=== PATIENT | female | born 1990 | race Caucasian/White ===

== ENCOUNTER 2020-06-13 12:51 | Emergency (ER) | payer MEDICAID, SELFPAY ==
[~2020-06-13] VITALS: Ht 152.4 cm; Wt 77.1 kg
[2020-06-13 12:58] VITALS: BP 149/91
--- NOTE | 2020-06-13 13:10 | NUR ---
29/F c/o nasal congestion x 4 days, subj fever since last night. Also states anxiety x 2 days. Denies cough, SOB.
--- NOTE | 2020-06-13 13:35 | NUR ---
covid swab collected and sent to lab
[2020-06-13 13:40] VITALS: BP 149/91
--- NOTE | 2020-06-13 13:40 | NUR ---
Patient discharged with v/s stable. Written and verbal after care instructions given and explained. Patient alert, oriented and verbalized understanding of instructions. Ambulatory with steady gait. All questions addressed prior to discharge. ID band removed. Patient advised to follow up with PMD. Rx of vistaril, zyrtec D, flonase given. Patient educated on indication of medication including possible reaction and side effects. Opportunity to ask questions provided and answered.
--- NOTE | 2020-06-18 10:33 | NUR ---
Covid-19 result shows not detected. Copy of results given to Mary at infection control
== END 2020-06-13 13:40 | disposition home or self-care (01) ==
LOC: MED 12:51
DX: R09.81 Nasal congestion (principal); J30.9 Allergic rhinitis, unspecified; I10 Essential (primary) hypertension; F06.4 Anxiety disorder due to known physiological condition; Z90.49 Acquired absence of other specified parts of digestive tract; Z20.828 Contact with and (suspected) exposure to other viral communicable diseases
CPT/HCPCS: 99283; U0003